=== PATIENT | male | born 2000 | race Two or more races ===

== ENCOUNTER 2024-06-03 22:35 | Emergency (ER) | payer MEDICAID, SELFPAY ==
[2024-06-03 22:36] VITALS: BMI 20.9
[2024-06-03 22:49] VITALS: BP 96/60; PULSE 60; RESP 16; TEMP 36.8; O2SAT 97
--- NOTE | 2024-06-03 23:04 | XR_ITS ---
Examination: CT maxillofacial, without intravenous contrast. 2-D sagittal reconstructions. 3-D reconstructions. Date and time of exam:June 03, 2024 1120 hours INDICATIONS: Laceration to the face today facial pain CTDI: vol (mGy):27.3 DLP: (mGycm):547 Technique: Multiple axial images of maxillofacial region, 3.0 mm slice thickness. 2-D sagittal and coronal reconstructions. 3-D reconstructions. Low dose protocols were performed. One or more of the following dose reduction techniques were used; automated exposure control, adjustment of the mA and/or KV according to patient size, use of iterative reconstruction technique. Findings: The images are not centered and do not include all of the frontal bone Orbital rims appear intact No optic globe foreign body No nasal bone fracture No depression zygomatic arches Pterygoid plates maxilla and the mandible is intact IMPRESSION: No acute facial fracture.
--- NOTE | 2024-06-03 23:04 | XR_ITS ---
Examination: CT brain head without contrast. 2-D sagittal coronal reconstructions Date and time of exam:June 03, 2024 11:20 PM INDICATIONS: Injury to head today with facial laceration and head pain CTDI: vol (mGy):48.5 DLP: (mGycm):947 Technique: Multiple CT axial sections of the brain have been obtained, 5 mm slice thickness. Contrast has not been administered. 2-D sagittal, coronal reconstructions have been obtained Low dose protocols were performed. One or more of the following dose reduction techniques were used; automated exposure control, adjustment of the mA and/or KV according to patient size, use of iterative reconstruction technique. Findings: No significant ventricular enlargement. Intra-axial or extra-axial hemorrhage density is not seen. No mass effect or midline shift Basal cisterns are not remarkable. Fourth ventricle is midline. Cranial vault intact. Impression: Negative for acute hemorrhage, mass effect or midline shift
--- NOTE | 2024-06-03 23:05 | EKG_ITS ---
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
--- NOTE | 2024-06-03 23:58 | XR_ITS ---
Examination: PA chest single view TECHNIQUE: Upright PA chest single view Exam date and time: June 04, 2024 at 0011 hours INDICATION: Chest pain today. FINDINGS: Normal heart size. Lungs are clear. Osseous structures are intact. IMPRESSION: No active disease.
[2024-06-04 00:25] LABS: Basophils # (Auto) 0.1 Thou/mm3 (0.0-0.2); Basophils % (Auto) 1 % (0-2.5); Eosinophils # (Auto) 0.2 Thou/mm3 (0.0-0.5); Eosinophils % (Auto) 2 % (0-10); Hematocrit 42.5 % (41.0-53.0); Hemoglobin 15.2 g/dL (13.5-16.0); Immature Granulocytes % (Auto) 0 % (0-0); Immature Granulocytes Auto 0.03 Thou/mm3 (0.00-0.00); Lymphocytes # (Auto) 2.4 Thou/mm3 (1.0-4.8); Lymphocytes % (Auto) 22 % (10-50); Mean Corpuscular HGB Conc 35.8 g/dl (31.0-37.0); Mean Corpuscular Volume 87 fL (80-100); Monocytes # (Auto) 0.8 Thou/mm3 (0.0-0.8); Monocytes % (Auto) 7 % (0-12); Neutrophils # (Auto) 7.4 Thou/mm3 (1.8-7.7); Neutrophils % (Auto) 68 % (37-80); Nucleated Red Blood Cell % 0 /100 WBC (0); Platelet Count 298 Thou/mm3 (140-440); RDW Standard Deviation 40.5 fL (35.1-43.9); White Blood Count 10.8 Thou/mm3 (3.8-10.6)
[2024-06-04 00:44] LABS: Alanine Aminotransferase 37 U/L (10-49); Albumin, Serum 4.4 gm/dL (3.5-5.0); Albumin/Globulin Ratio 1.4 (1.2-2.2); Alkaline Phosphatase 90 U/L (46-116); Anion Gap 5 (7-16); Aspartate Amino Transferase 30 U/L (0-34); BUN/Creatinine Ratio 10 Ratio (12-20); Bilirubin,Total 0.6 mg/dL (0.3-1.2); Blood Urea Nitrogen 10 mg/dL (9-23); Calcium 9.3 mg/dL (8.3-10.6); Calcium (Corrected) 9.3 mg/dL (8.5-10.1); Carbon Dioxide 28.4 mMol/L (20.0-31.0); Chloride 105 mMol/L (98-107); Globulin 3.2 gm/dL (2.3-3.5); Glucose 94 mg/dL (74-106); Osmolality,Calculated 274 (275-295); Potassium 4.2 mMol/L (3.4-5.1); Sodium 138 mMol/L (136-145); Total Protein 7.6 gm/dL (5.7-8.2); Troponin I < 0.020 ng/mL (0.0-0.045); eGFR > 60 See Note
[2024-06-04 00:49] LABS: D-Dimer 276 ng/mL (<600)
--- NOTE | 2024-06-04 04:02 | PD.EDSYNC ---
ED Syncope RME/HPI General Chief Complaint: Syncope / Near Syncope Stated Complaint: PASSED OUT, LAC TO RIGHT EYEBROW Time Seen by Provider: 06/03/24 23:04 Arrival date/time: 06/03/24 22:35 24M with history of drug/alcohol use presents to ED with syncopal episode after [place] Patient has been drinking today. Patient fell on his face and has a R eyebrow lac. Patient denies N/V, AMS, seizures, and vision changes. Patient had a tetanus shot here about 5 years ago. Limitations: no limitations Related Data Allergies Allergy/AdvReac Type Severity Reaction Status Date / Time No Known Allergies Allergy Verified 10/14/22 22:54 Review of Systems Review of Systems Systems Reviewed: All systems reviewed, normal except as documented Constitutional Constitutional: Reports system reviewed and no additional complaints, except as documented, Denies fever(s) and Denies headache(s) ENT Ears, Nose, Mouth, and Throat: Denies disequilibrium, Reports dry mouth and Denies headache(s) Cardiovascular Cardiovascular: Reports system reviewed and no additional complaints, except as documented, Denies chest pain, Denies dyspnea and Reports syncope Respiratory Respiratory: Reports system reviewed and no additional complaints, except as documented, Denies cough and Denies dyspnea Gastrointestinal Gastrointestinal: Reports system reviewed and no additional complaints, except as documented, Denies abdominal pain, Denies nausea and Denies vomiting Integumentary/Breasts Skin/Breast: Reports as per HPI and Reports skin pain Neurologic Neurologic: Reports system reviewed and no additional complaints, except as documented, Reports as per HPI, Denies confusion, Denies disequilibrium, Denies headache(s) and Reports syncope Psychiatric Psychiatric: Denies confusion Past Medical History Past Medical History CARDIAC: Negative Congestive Heart Failure RESPIRATORY: Negative Chronic Obstructive Pulmonary Disease (COPD) GENITOURINARY: Negative Renal Disease ENDOCRINE: Negative Diabetes Mellitus Type 1 or Diabetes Mellitus Type 2 Social History SMOKING STATUS: Never smoker ED Exam General Limitations: Present no limitations General appearance: Present alert and in no apparent distress Expanded Head Exam Head exam physical: Present laceration (2 cm R eye brow area) Eye Eye exam: Present normal appearance, PERRL and EOMI ENT ENT exam: Present normal exam, normal oropharynx and mucous membranes moist Neck Neck exam: Present normal inspection, full ROM and trachea midline Chest Chest inspection: Present normal inspection and symmetric chest wall rise Respiratory Respiratory exam: Present normal lung sounds bilaterally Cardiovascular Cardiovascular exam: Present regular rate, normal rhythm and normal heart sounds Abdominal Exam Abdominal exam: Present soft and normal bowel sounds Extremities Exam Extremities exam: Present normal inspection and full ROM Back Exam Back exam: Present normal inspection and full ROM Neurological Exam Neurological exam: Present alert, oriented X3 and CN II-XII intact Psychiatric Psychiatric exam: Present normal affect and normal mood Skin Skin exam: Present warm, dry, intact and normal color Course Quality Measures none Orders Category Date Time Status EKG (ED ONLY) *Do not use* NOW Care 06/03/24 23:05 Completed Set Up Suture Tray STAT Care 06/04/24 00:57 Active Wound Care NOW Care 06/03/24 23:[address] facial bones wo con Stat Exams 06/03/24 23:[address] head/brain wo con Stat Exams 06/03/24 23:04 Completed EKG (ED Only) Stat Exams 06/03/24 23:05 Draft XR chest 1V portable Stat Exams 06/03/24 23:58 Taken CBC Stat Lab 06/03/24 23:58 Completed Comprehensive Metabolic Panel Stat Lab 06/03/24 23:58 Completed D-Dimer Stat Lab 06/03/24 23:58 Completed Troponin I Stat Lab 06/03/24 23:58 Completed Vital Signs Vital signs: Vital Signs Temperature 98.3 F 06/03/24 22:49 Pulse Rate 60 06/03/24 22:49 Respiratory Rate 16 06/03/24 22:49 Blood Pressure 96/60 06/03/24 22:49 Pulse Oximetry (%) 97 06/03/24 22:49 Oxygen Delivery Method Room Air 06/03/24 22:49 O2 at 97% on RA and WNLs Syncope MDM Narrative MDM Narrative:: 24M with history of drug/alcohol use presents to ED with syncopal episode after he [place] Patient has been drinking today. Patient fell on his face and has a R eyebrow lac. Patient denies N/V, AMS, seizures, and vision changes. Patient had a tetanus shot here about 5 years ago. Physical exam reveals normal pupil response and EOM. ENT and lungs clear. CN II-XII grossly intact. RRR. 2 cm lac on R eyebrow area. Neck ROM intact. Gait normal. Patient is afebrile, calm, and alert. CT unremarkable. Wet CXR read unremarkable pending official report. Minimal leukocytosis, likely reactive to syncope/trauma. No anemia. Normal trop and D-dimer. Wound cleaned/irrigated and closed with 5 stitches. Given certified personal finance counselor to have them removed in about 7 days. Patient data External records reviewed:: [facility] previous records Clinical information provided by:: patient Social determinants that could affect healthcare access:: substance use Patient has the following chronic illnesses:: drug/alcohol use How is presenting disease/condition affected by chronic disease/condition?: exacerbated by Evaluation data The following diagnostics were reviewed and interpreted by me:: lab results, radiology exam(s) and EKG tracing(s) Lab and/or radiology exams considered but not ordered:: ordered Interpretation Summary: above Medications / Prescriptions Medications or Prescriptions considered but not ordered:: not ordered Medication administrations:: n/a Consultations Consultation(s) initiated? (list below): No Diagnosis Syncope Differential Diagnosis: syncope due to orthostatic hypotension, vasovagal syncope, complete atrioventricular block, subarachnoid hemorrhage, pulmonary embolism, dehydration and other (laceration ) Most likely diagnosis given after review of the tests above:: laceration and syncope Admission Indicated Admission indicated?: not indicated Admission Request Was there a request for admission?: No Disposition Plan Disposition Plan: Discharge Discharge Attestation Discharge Attestation: The patient and all family members were given an opportunity to ask questions and understood the discharge instructions. Discharge instructions specifically effects, indications for sooner follow up or return to the emergency department, and the expected course of current diagnosis. Patient condition: Stable Discharge Plan Plan Patient Disposition: HOME (Self Care) Disposition Comment: Stable Problem List Clinical Impression: Laceration, Syncope Patient/Caregiver Discharge Instructions Education Materials: ED Laceration, Face: Stitches or Tape, ED Fainting, Vagal Reaction Additional Instructions: Please follow-up with PCP within 24-48 hours and return immediately if symptoms worsen. Have stitches removed in about 7 days. Print Language: Yi Stand Alone Forms: Patient Portal Info Letter PA/GLORY HOLE TENDER Supervising Physician KHADAR/GLORY HOLE TENDER Supervising Physician: Dr. Elizondo
== END 2024-06-04 01:33 | disposition home or self-care (01) ==
LOC: SERX 06-04 05:02
PROVIDERS: Physician Assistant; Emergency Provider Emergency Medicine; PCP Family Medicine
DX: S01.111A Laceration without foreign body of right eyelid and periocular area, initial encounter (principal); S09.90XA Unspecified injury of head, initial encounter; R55 Syncope and collapse; R07.9 Chest pain, unspecified; W18.39XA Other fall on same level, initial encounter; Y92.59 Other trade areas as the place of occurrence of the external cause; D72.829 Elevated white blood cell count, unspecified; R00.1 Bradycardia, unspecified; I45.10 Unspecified right bundle-branch block
CPT/HCPCS: 12011; 36415; 70450; 70486; 71045; 80053; 84484; 85025; 85379; 93005; 99284